=== PATIENT | male | born 1985 | race Caucasian/White ===

== ENCOUNTER → 2018-07-15 | Emergency (ER) | payer OTHER ==
[~2018-07-15] VITALS: Ht 193 cm; Wt 108.9 kg
[~2018-07-15] MED LIST: AFRIN15 ML NASAL; CELEBREX200MG PO; LANSOPRAZOLE15 MG PO; SKELAXIN800 MG PO
== END | disposition home or self-care (01) ==
LOC: ER 19:17
DX: M62.838 Other muscle spasm (principal); M94.0 Chondrocostal junction syndrome [Tietze]; R06.02 Shortness of breath